=== PATIENT | female | born 1985 | race Two or more races ===

== ENCOUNTER 2016-12-16 09:49 | Emergency (ER) | payer MEDICAID ==
[~2016-12-16] VITALS: Ht 149.9 cm; Wt 86.2 kg
[2016-12-16 10:20] VITALS: BP 132/65
[2016-12-16] MEDS ORDERED: cefTRIAXone SOD 1,000 MG VL IM ONE (10:30)
[2016-12-16] MEDS ORDERED: KETOROLAC TROMETH 60MG/2ML VIAL IM ONE (10:30)
== END 2016-12-16 10:58 | disposition home or self-care (01) ==
LOC: ER 09:49
DX: K04.7 Periapical abscess without sinus (principal)
CPT/HCPCS: 96372; 99284; J0696; J1885